=== PATIENT | female | born 1995 | race Two or more races ===

== ENCOUNTER 2021-07-07 16:59 | Emergency (ER) | payer OTHER ==
[~2021-07-07] VITALS: Ht 170.2 cm; Wt 73.9 kg
== END 2021-07-07 20:38 | disposition home or self-care (01) ==
LOC: ER 16:59
DX: R21 Rash and other nonspecific skin eruption (principal); A51.39 Other secondary syphilis of skin

== ENCOUNTER 2021-08-19 07:37 | Emergency (ER) | payer OTHER ==
[~2021-08-19] VITALS: Ht 170.2 cm; Wt 69.9 kg
[2021-08-19] MEDS ORDERED: ATARAX25 MG PO (10:00)
[2021-08-19] MEDS ORDERED: CLOTRIMAZOLE-BE15 GM TOP (10:00)
[2021-08-19] MEDS ORDERED: MOMETASONE FURO15 G2 TOP (10:00)
== END 2021-08-19 10:17 | disposition home or self-care (01) ==
LOC: ER 07:37
DX: L30.8 Other specified dermatitis (principal)

== ENCOUNTER 2021-12-08 10:56 | Emergency (ER) | payer OTHER ==
[~2021-12-08] VITALS: Ht 170.2 cm; Wt 63.5 kg
[~2021-12-08 10:56] MED LIST: ATARAX25 MG PO; CLOTRIMAZOLE-BE15 GM TOP; MOMETASONE FURO15 G2 TOP
== END 2021-12-08 15:48 | disposition home or self-care (01) ==
LOC: ER 10:56
DX: R10.2 Pelvic and perineal pain (principal); Z91.013 Allergy to seafood